=== PATIENT | female | born 1940 | race Caucasian/White ===

== ENCOUNTER 2017-11-25 05:26 | Day surgery (SDC) | payer MEDICARE, BC ==
[2017-11-23 14:17] LABS: BASOPHILS % (AUTO) 0.5 % (0-1); EOSINOPHILS # (AUTO) 0.2 X10'3 (0-0.9); EOSINOPHILS % (AUTO) 2.8 % (0-6); LYMPHOCYTES % (AUTO) 24.6 % (21-51); MEAN CORPUSCULAR HEMOGLOBIN 28.8 PG (27.0-31.0); MEAN CORPUSCULAR HGB CONC 33.2 % (33.0-36.5); MEAN CORPUSCULAR VOLUME 86.6 FL (78-98); MEAN PLATELET VOLUME 8.3 FL (7.4-10.4); MONOCYTES # (AUTO) 0.7 X10'3 (0-0.9); MONOCYTES % (AUTO) 9.1 % (2-12); PRE OP HEMATOCRIT 35.7 % (35.0-45.0); PRE OP HEMOGLOBIN 11.9 g/dL (12.0-16.0); PRE OP PLATELET COUNT 294 X10'3 (140-440); RED BLOOD COUNT 4.12 X10'6 (4.20-5.60); RED CELL DISTRIBUTION WIDTH 18.3 % (11.5-14.5)
[2017-11-23 14:20] LABS: CLARITY,URINE CLEAR (Clear); COLOR,URINE YELLOW (Yellow); GLUCOSE, URINE NEGATIVE (Neg); KETONES,URINE NEGATIVE (Neg); LEUKOCYTE ESTERASE ,URINE TRACE (Neg); NITRITES, URINE NEGATIVE (Neg); OCCULT BLOOD,URINE TRACE-INTACT (Neg); PH,URINE 7.5 (4.8-8.0); PROTEIN,URINE NEGATIVE (Neg); UROBILINOGEN,URINE 0.2 E.U/dL (0.2-1.0)
[2017-11-23 14:32] LABS: PRE OP PROTIME 10.5 SECONDS (9.0-12.0)
[2017-11-23 14:38] LABS: ALBUMIN 3.1 G/DL (3.4-5.0); ALBUMIN/GLOBULIN RATIO 0.8 (1.1-1.5); ALKALINE PHOSPHATASE 185 IU/L (46-116); BLOOD UREA NITROGEN 29 MG/DL (7-18); BUN/CREATININE RATIO 29.9 (6.6-38.0); CALCIUM 9.3 MG/DL (8.5-10.1); CHLORIDE 105 MMOL/L (99-107); CREATININE 0.97 MG/DL (0.40-0.90); PRE OP ALT 53 U/L (30-65); PRE OP ANION GAP 11 (8-16); PRE OP AST 24 U/L (10-37); PRE OP BILIRUB, TOTAL 0.4 MG/DL (0.0-1.0); PRE OP GLUCOSE 133 MG/DL (70-104); PRE OP POTASSIUM 4.2 MMOL/L (3.4-5.1); PRE OP SODIUM 142 MMOL/L (135-145); TOTAL CARBON DIOXIDE 26.3 MMOL/L (24-32); TOTAL PROTEIN 7.1 G/DL (6.4-8.2); UA COLLECTION TYPE CLN CATCH MIDSTREAM; eGFR 56 ML/MIN
[2017-11-23 14:40] LABS: SQUAMOUS EPITHELIAL CELL,UR FEW /LPF (FEW)
[2017-11-23 14:41] LABS: AMORPHOUS PHOSPHATES 1+; BACTERIA,URINE FEW /HPF (Neg); RBC,URINE 0-2 /HPF (0-2); WBC,URINE 0-4 /HPF (0-4)
[2017-11-25] VITALS (9 sets, daily range): BP systolic 128–140; BP diastolic 70–82
[~2017-11-25] VITALS: Ht 157.5 cm; Wt 71.2 kg
[~2017-11-25 05:26] MED LIST: ACET-2119 PO; APIX5TAB3 PO; BUME1TAB4 PO; CALC-854 PO; CARB15DR2 EACHEYE; CLOB15CR4 TOP; DOCU-28 PO; EXEN2VIA SUBCUT; EZET10TA14 PO; LEVO50TA8 PO; LYR75C CORPAK; METO50TA7 PO; MOME17SP BOTHNARES; MULT1TAB74 PO; NAPAOS EACHEYE; NITR0.4T48 SL; OLME40TA13 PO; OLOP2.5D5 EACHEYE; OMEG-156 PO; POTA10CA44 PO; UBID1CAP58 PO; VIT1CAPS9 PO; ringers solution, lacted 1,000 ML IV SCH
[2017-11-25] MEDS ORDERED: cefazolin/dext.iso 2gm/50ml 50 ML IV ONE (05:30)
[2017-11-25] MEDS ORDERED: DOCUMENT DATE & TIME OF BETA-BLOCKER PO ONE (05:30)
[2017-11-25] MEDS ORDERED: famotidine 20mg tablet PO ONE (05:30)
[2017-11-25] MEDS ORDERED: LIDOcaine 1% (10mg/ml) 2ml vial ONE (05:48)
[2017-11-25] MEDS ORDERED: BUPIVAcaine 0.5% inj/PF 30 ml vial ONE (06:44)
[2017-11-25] MEDS ORDERED: BUPIVAcaine/PF 2.5 mg/ml (0.25%) 30ml vial ONE (06:44)
[2017-11-25] MEDS ORDERED: fentaNYL/PF 50MCG/1 ML 2ML syringe ONE (07:14)
[2017-11-25] MEDS ORDERED: sevoflurane 250ml liquid IH ONE (07:18)
[2017-11-25] MEDS ORDERED: propofol inj 20 ML IV ONE (07:37)
[2017-11-25] MEDS ORDERED: LIDOcaine 1%/PF (10mg/ml) 5ml vial ONE (07:38)
[2017-11-25] MEDS ORDERED: ondansetron/PF 4mg/2ml inj ONE (07:38)
[2017-11-25] MEDS ORDERED: rocuronium 10mg/ml inj IV ONE (07:38)
[2017-11-25] MEDS ORDERED: metoprolol tartrate 1mg/ml inj IV ONE (07:38)
[2017-11-25] MEDS ORDERED: glycopyrrolate 0.2mg/ml inj ONE (08:08)
[2017-11-25] MEDS ORDERED: neostigmine methylsulfate 1 MG/ML 10ml vial ONE (08:08)
[2017-11-25] MEDS ORDERED: ringers solution, lacted 1,000 ML IV ONE (08:22)
[2017-11-25] MEDS ORDERED: labetalol 20mg/4ml (5mg/ml) syringe IV PRN (08:25)
[2017-11-25] MEDS ORDERED: meperidine/PF 50mg/ml syringe IV ONE (08:25)
[2017-11-25] MEDS ORDERED: morphine 4 MG/ML inj SYRINge IV PRN ×2 (08:25)
[2017-11-25] MEDS ORDERED: meperidine/PF 50mg/ml syringe IV PRN ×2 (08:25)
[2017-11-25] MEDS ORDERED: ondansetron/PF 4mg/2ml inj IV PRN (08:25)
[2017-11-25] MEDS ORDERED: hydrALAZINE 20mg/ml inj. IV PRN (08:25)
== END 2017-11-25 09:18 | disposition home or self-care (01) ==
LOC: PAS 05:26
PROVIDERS: ATTEND Thoracic Surgery (Cardiothoracic Vascular Surgery)
DX: M79.89 Other specified soft tissue disorders (principal); I48.1 Persistent atrial fibrillation; I25.10 Atherosclerotic heart disease of native coronary artery without angina pectoris; I10 Essential (primary) hypertension; E03.9 Hypothyroidism, unspecified; E11.40 Type 2 diabetes mellitus with diabetic neuropathy, unspecified; I44.0 Atrioventricular block, first degree; I25.2 Old myocardial infarction; M19.90 Unspecified osteoarthritis, unspecified site; E78.5 Hyperlipidemia, unspecified; Z95.1 Presence of aortocoronary bypass graft; Z86.74 Personal history of sudden cardiac arrest; Z86.73 Personal history of transient ischemic attack (TIA), and cerebral infarction without residual deficits; Z86.79 Personal history of other diseases of the circulatory system; Z96.651 Presence of right artificial knee joint; Z90.49 Acquired absence of other specified parts of digestive tract; Z90.89 Acquired absence of other organs; Z90.710 Acquired absence of both cervix and uterus; Z90.721 Acquired absence of ovaries, unilateral; Z91.040 Latex allergy status; Z91.048 Other nonmedicinal substance allergy status; Z88.1 Allergy status to other antibiotic agents; Z88.6 Allergy status to analgesic agent; Z88.0 Allergy status to penicillin; Z79.01 Long term (current) use of anticoagulants; Z88.8 Allergy status to other drugs, medicaments and biological substances; Z91.018 Allergy to other foods; Z79.899 Other long term (current) drug therapy; Z98.890 Other specified postprocedural states
CPT/HCPCS: 21556; 36415; 71046; 80053; 81001; 82948; 83036; 85025; 85610; 85730; 86885; 86900; 86901; 87070; 87075; 87088; 87102; 93005; A6255; A6449; J0690; J2001; J2405; J2704; J2710; J3010; J3490; J7120; A7000